=== PATIENT | female | born 1985 | race Caucasian/White ===

== ENCOUNTER → 2016-07-11 | Outpatient (CLI) | payer OTHER ==
--- NOTE | 2016-07-11 16:46 | MAMMOGRAPHY REPORT ---
BILATERAL DIGITAL SCREENING MAMMOGRAM TOMOSYNTHESIS WITH CAD: 07/11/2016 CLINICAL HISTORY: Routine screening. Patient has no complaints. TECHNIQUE: Breast tomosynthesis in addition to standard 2D mammography was performed. Current study was also evaluated with a Computer Aided Detection (CAD) system. COMPARISON: Comparison is made to exams dated: 07/08/2015 mammogram, 02/04/2014 mammogram, 03/01/2011 mammogram, 03/08/2011 mammogram, and 01/31/2013 mammogram - [facility] [address]. BREAST COMPOSITION: The tissue of both breasts is heterogeneously dense, which may obscure small ma sses. FINDINGS: The parenchymal pattern is similar to prior exams. A few punctate microcalcifications ar e stable in the breasts. No suspicious mass, architectural distortion or cluster of microcalcificat ions is seen. IMPRESSION: ACR BI-RADS CATEGORY 1: NEGATIVE There is no mammographic evidence of malignancy. A 1 year screening mammogram is recommended. The p atient will receive written notification of the results. Approximately 10% of breast cancers are not detected with mammography. A negative mammographic repor t should not delay biopsy if a clinically suggestive mass is present. Desirae Devi M.D. ay/:07/11/2016 16:36:22 Director Of Design: Arely POWELL(Sukumar)(Wolfgang), [facility] [address] letter sent: Normal 1/2 BI-RADS Code: ACR BI-RADS Category 1: Negative
== END | disposition home or self-care (01) ==
LOC: C.MAMM 16:11
PROVIDERS: ATTEND Family Medicine
DX: Z12.31 Encounter for screening mammogram for malignant neoplasm of breast (principal)

== ENCOUNTER → 2017-07-17 | Outpatient (CLI) | payer OTHER ==
--- NOTE | 2017-07-18 15:22 | MAMMOGRAPHY REPORT ---
BILATERAL DIGITAL SCREENING MAMMOGRAM TOMOSYNTHESIS WITH CAD: 07/17/2017 CLINICAL HISTORY: Routine screening. Patient has no complaints. TECHNIQUE: Breast tomosynthesis in addition to standard 2D mammography was performed. Current study was also evaluated with a Computer Aided Detection (CAD) system. COMPARISON: Comparison is made to exams dated: 07/11/2016 mammogram, 07/08/2015 mammogram, 02/04/2014 m ammogram, 01/31/2013 mammogram, and 03/01/2011 mammogram - [facility]. BREAST COMPOSITION: The tissue of both breasts is heterogeneously dense, which may obscure small mas ses. FINDINGS: No suspicious masses, calcifications, or areas of architectural distortion are noted in ei ther breast. There has been no significant interval change compared to prior exams. IMPRESSION: ACR BI-RADS CATEGORY 1: NEGATIVE There is no mammographic evidence of malignancy. A 1 year screening mammogram is recommended. The pa tient will receive written notification of the results. Approximately 10% of breast cancers are not detected with mammography. A negative mammographic report should not delay biopsy if a clinically suggestive mass is present. Jody Zheng M.D. /:07/17/2017 16:58:19 Support Representative: Martha POWELL(Sukumar)(M), [facility] letter sent: Normal 1/2 BI-RADS Code: ACR BI-RADS Category 1: Negative
== END | disposition home or self-care (01) ==
LOC: C.MAMM 16:21
PROVIDERS: ATTEND Family Medicine
DX: Z12.31 Encounter for screening mammogram for malignant neoplasm of breast (principal)

== ENCOUNTER 2018-11-18 02:20 | Inpatient (IN) ==
[2018-11-18] MEDS ORDERED: OXYTOCIN 30 UNITS/500 ML BAG IV PRN ×3 (03:15→16:32)
[2018-11-18] MEDS: LACTATED RINGER'S 1,000 ML IV PRN ×3 (03:33→10:40)
[2018-11-18 03:40] LABS: Hematocrit (blood only) 37.7 % (37-47); Hemoglobin 13.1 g/dL (12.0-16.0); Mean Corpuscular Volume 87.5 fL (80-100); Mean Platelet Volume 10.8 fL (7.4-10.4); Platelet Count 209 K/uL (130-400); RDW Coefficient of Variation 13.9 % (11.5-14.5); RDW Standard Deviation 44.6 fL (36.4-46.3); Red Blood Count 4.31 M/uL (4.2-5.4); White Blood Count 16.52 K/uL (4.8-10.8)
[2018-11-18 04:28] LABS: Mean Corpuscular Hgb Conc 34.7 g/dL (32-36)
[2018-11-18] MEDS ORDERED: BUPIVACAINE 0.25% 30 ML VIAL ONE (06:30)
[2018-11-18] MEDS ORDERED: ePHEDrine sulfate 50 MG/ML AMP ONE (06:30)
[2018-11-18] MEDS ORDERED: fentaNYL citrate 100 MCG/2 ML VIAL ONE (06:30)
[2018-11-18] MEDS ORDERED: fentaNYL 2MCG/ML ROPIV 1.25MG/ML 100 ML BAG EPI ONE (06:31)
--- NOTE | 2018-11-18 06:53 | Labor Progress Brief Note ---
Date of Service November 18, 2018 Subjective Patient visited shortly after 6am. Tolerating contractions, somewhat better while in shower but getting more painful again while in bed. Will want epidural soon. FHT 130 mod moni +acc -dec Cowen irreg Cvx 2/90/-2 LOF clear Discussed augmentation given ROM and minimal change from last exam; pt agreeable. Will get epidural first then begin pit drip. Results & Data Vital Signs (Past 12 Hours) Vital Signs Temp Pulse Resp BP Pulse Ox 11/18/18 06:48 68 98 11/18/18 06:43 86 87 L 11/18/18 05:00 37.0 C 18 11/18/18 02:37 36.9 C 18 11/18/18 02:35 74 139/80
[2018-11-18] MEDS ORDERED: PROMETHAZINE HCL 6.25 MG in SODIUM CHLORIDE 0.9% 50 ML IV PRN (07:35)
[2018-11-18] MEDS ORDERED: NALOXONE HCL 0.4 MG/1 ML VIAL/CARP IV PRN (07:35)
[2018-11-18] MEDS ORDERED: NALOXONE HCL 1 MG in SODIUM CHLORIDE 0.9% 1000ML 1,000 ML IV PRN (07:35)
[2018-11-18] MEDS ORDERED: fentaNYL 2MCG/ML ROPIV 1.25MG/ML 100 ML BAG EPI PRN (07:35)
[2018-11-18] MEDS ORDERED: NALBUPHINE HCL INJ 10 MG/ML AMP IV PRN (07:35)
[2018-11-18] MEDS ORDERED: ePHEDrine sulfate 50 MG/ML AMP IV PRN (07:35)
[2018-11-18] MEDS ORDERED: DiphenhydrAMINE HCL 50 MG/ML VIAL IV PRN (07:35)
[2018-11-18] MEDS ORDERED: ONDANSETRON INJ 2 MG/ML 2 ML VIAL IV PRN (07:35)
--- NOTE | 2018-11-18 07:35 | Anesthesiology Consultation ---
Date of Service November 18, 2018 Assessment & Plan (1) Encounter for pre-operative examination: Chart Review Chart Review: Patient NOT seen in Pre Admission Testing and Acceptable Risk for Labor Epidural Consults Requested none ASA ASA2 Proposed Anesthesia Anesthesia Type: Labor Epidural Risk / Benefits Reviewed With: PT / POA / Parent / Guardian, Accepts Plan and Informed Consent Obtained History Height/Weight Height: 5 ft 4 in Weight: 78.471 kg Allergies Allergy/AdvReac Type Severity Reaction Status Date / Time No Known Allergies Allergy Unverified 11/18/18 02:53 Medications Home Medications Medication Instructions Recorded Confirmed Last Taken 1 tab PO DAILY 11/18/18 11/18/18 1 Day Ago ~11/17/18 0800 Active Medications Generic Name Dose Route Start Last Admin Trade Name Freq PRN Reason Stop Dose Admin Lactated Ringer's 1,000 mls @ 125 mls/hr 11/18/18 03:15 11/18/18 06:53 Lr IV 11/20/18 03:14 999 mls/hr .Q8H PRN Administration L&D Protocol Protocol NPO Date Last Intake of Fluids: 11/18/18 Time Last Intake of Fluids: 01:00 Date Last Intake of Solids: 11/18/18 Time Last Intake of Solids: 01:00 Past Medical History Medical History Fibroid Right side Exercise / Class Metabolic Activity II 4-5 Yardwork/Stairs/Walk up hill Past Family History Family History Grandmother (Paternal) Diabetes Brother No problems noted. Mother Cancer Past Anesthesia History No Hx of Anesthesia Complications History of PONV No Hx of PONV Social History Smoking Status: Never smoker Do You Dip or Chew Tobacco: No Hx Alcohol Use: No Hx Substance Use: No Physical Exam Vital Signs Last Vital Signs Temp 37.0 C 11/18/18 05:00 Pulse 100 H 11/18/18 07:32 Resp 18 11/18/18 05:00 BP 127/73 11/18/18 07:32 Pulse Ox 99 11/18/18 07:28 ENMT Mouth: no dentition abnormality Thyromental Distance: > or= 3.5 Finger Breadths Mallampati Class: II Neck normal visual inspection Respiratory normal respiratory effort Auscultation: lungs clear to auscultation bilaterally Cardiovascular Rate/Rhythm: regular rate and regular rhythm Psychiatric Orientation: alert
[2018-11-18] MEDS ORDERED: CALCIUM CARBONATE 500 MG CHEWABLE TAB PO PRN (08:39)
[2018-11-18] MEDS ORDERED: OXYCODONE/ACETAMINOPHEN 5mg/325mg TAB PO PRN (16:32)
[2018-11-18] MEDS ORDERED: HYDROCORTISONE ACETATE 25 MG SUPP PR PRN (16:32)
[2018-11-18] MEDS ORDERED: SUPERCREAM 0.870% 15 GM JAR EXT PRN (16:32)
[2018-11-18] MEDS ORDERED: ACETAMINOPHEN 325 MG TAB PO PRN (16:32)
[2018-11-18] MEDS ORDERED: BISACODYL 10 MG SUPP PR PRN (16:32)
[2018-11-18] MEDS ORDERED: DIPHTHERIA/TETANUS/PERTUSSIS 0.5 ML SYR/VIAL IM ONE (16:32)
--- NOTE | 2018-11-18 17:42 | Anesthesia Procedure Note ---
Date of Service November 18, 2018 Anesthesia Post Epidural Note Vital Signs Vital Signs: Temp Pulse Resp BP Pulse Ox 11/18/18 17:28 112 H 122/64 11/18/18 17:13 115 H 133/74 11/18/18 16:58 93 H 121/65 11/18/18 16:43 91 H 124/68 11/18/18 16:28 93 H 119/67 11/18/18 16:13 88 124/67 11/18/18 16:08 90 125/67 11/18/18 15:39 84 151/90 H 11/18/18 15:38 84 99 11/18/18 15:33 101 H 100 11/18/18 15:28 81 99 11/18/18 15:23 84 98 11/18/18 15:18 121 H 100 11/18/18 15:13 79 99 11/18/18 15:08 82 121/57 L 98 11/18/18 15:03 72 99 11/18/18 14:58 90 100 11/18/18 14:53 79 99 11/18/18 14:48 77 100 11/18/18 14:43 70 100 11/18/18 14:39 71 122/58 L 11/18/18 14:38 79 100 11/18/18 14:33 91 H 100 11/18/18 14:28 74 100 11/18/18 14:23 78 100 11/18/18 14:19 90 87 L 11/18/18 14:18 93 H 90 11/18/18 14:13 76 100 11/18/18 14:08 79 100 11/18/18 14:05 83 124/60 11/18/18 14:03 94 H 94 11/18/18 13:59 95 H 76 L 11/18/18 13:58 87 128/77 99 11/18/18 13:53 91 H 99 11/18/18 13:49 90 125/60 11/18/18 13:48 86 100 11/18/18 13:46 90 129/95 85 L 11/18/18 13:43 86 100 11/18/18 13:38 91 H 119/63 100 11/18/18 13:35 103 H 122/77 11/18/18 13:33 108 H 100 11/18/18 13:29 76 119/65 11/18/18 13:28 88 100 06 13:23 88 129/69 100 11/18/18 13:19 82 131/73 06 13:18 79 99 11/18/18 13:14 86 136/72 11/18/18 13:13 87 100 11/18/18 13:10 93 H 134/82 11/18/18 13:08 96 H 100 11/18/18 13:03 100 H 129/78 100 11/18/18 12:58 87 123/71 100 11/18/18 12:54 101 H 126/74 11/18/18 12:53 104 H 100 11/18/18 12:50 100 H 85 L 11/18/18 12:49 100 H 138/75 11/18/18 12:48 95 H 100 11/18/18 12:45 91 H 129/71 11/18/18 12:43 93 H 99 11/18/18 12:40 85 128/75 11/18/18 12:38 106 H 100 11/18/18 12:34 88 130/78 11/18/18 12:33 90 100 11/18/18 12:28 101 H 130/86 99 11/18/18 12:23 102 H 126/76 100 11/18/18 12:20 81 129/72 11/18/18 12:18 102 H 100 11/18/18 12:14 86 118/72 11/18/18 12:13 98 H 100 11/18/18 12:08 93 H 136/72 100 11/18/18 12:03 92 H 124/72 100 11/18/18 12:00 95 H 129/81 11/18/18 11:58 100 H 100 11/18/18 11:53 82 121/71 100 11/18/18 11:50 88 122/74 11/18/18 11:48 93 H 100 06 11:43 76 124/70 100 11/18/18 11:38 86 122/69 100 11/18/18 11:35 77 120/69 11/18/18 11:33 87 100 11/18/18 11:30 36.6 C 86 20 126/71 11/18/18 11:28 84 100 06 11:24 90 139/75 11/18/18 11:23 80 100 06/09/03 11:19 86 122/83 06/09/03 11:18 84 100 06/09/03 11:13 97 H 121/65 100 06/09/03 11:08 89 128/77 100 06/09/03 11:03 88 125/75 100 06/09/03 10:58 91 H 100 06/09/03 10:53 87 124/74 100 06/09/03 10:49 77 125/72 06/09/03 10:48 97 H 100 06/09/03 10:43 89 119/72 98 06/09/03 10:38 83 116/73 100 06/09/03 10:33 82 117/74 100 06/09/03 10:29 76 121/69 06 10:28 84 99 06/09/03 10:23 100 H 123/73 100 /09/03 10:18 85 114/68 98 06/09/03 10:13 83 121/68 97 06/09/03 10:09 78 117/69 06 10:08 80 98 06/09/03 10:05 72 118/63 06 10:03 86 97 06 09:58 83 112/68 98 06 09:53 76 115/68 98 11/18/18 09:48 78 111/67 98 06/09/03 09:43 81 119/67 99 11/18/18 09:39 78 113/72 06/09/03 09:38 82 99 06/09/03 09:33 78 125/70 99 06/09/03 09:28 78 115/64 98 06/03 09:23 84 112/62 98 06/09/03 09:18 72 114/62 99 06/09/03 09:13 74 115/65 99 06/09/03 09:08 73 113/66 100 06/09/03 09:03 84 115/67 100 06 08:58 71 111/69 98 06 08:53 106 H 108/67 100 /09/03 08:48 77 112/66 98 06/03/ 08:43 84 114/62 98 06/09/03 08:38 76 108/63 98 /09/03 08:34 71 110/62 06/09/03 08:33 76 99 11/18/18 08:28 85 97/53 L 100 11/18/18 08:23 92 H 108/59 L 100 11/18/18 08:18 83 108/60 100 11/18/18 08:13 79 105/58 L 99 11/18/18 08:08 85 104/56 L 100 11/18/18 08:04 70 108/58 L 11/18/18 08:03 75 99 11/18/18 07:58 84 108/62 100 11/18/18 07:53 96 H 94/57 L 100 11/18/18 07:49 79 116/61 11/18/18 07:48 74 99 11/18/18 07:43 92 H 120/65 100 11/18/18 07:38 101 H 115/68 99 11/18/18 07:33 98 H 100 11/18/18 07:32 100 H 127/73 11/18/18 07:30 83 118/71 11/18/18 07:28 88 109/65 99 11/18/18 07:26 81 117/69 11/18/18 07:25 82 116/76 11/18/18 07:23 76 122/67 99 11/18/18 07:20 78 137/72 11/18/18 07:19 74 124/71 11/18/18 07:18 84 100 11/18/18 07:13 89 99 11/18/18 07:08 87 150/97 H 99 11/18/18 07:03 84 100 11/18/18 07:00 36.7 C 20 11/18/18 06:58 79 100 11/18/18 06:53 78 99 11/18/18 06:48 68 98 11/18/18 06:43 86 87 L 11/18/18 05:00 37.0 C 18 11/18/18 02:37 36.9 C 18 11/18/18 02:35 74 139/80 Notes Mental Status: alert / awake / arousable Nausea / Vomiting: adequately controlled Pain: adequately controlled Airway Patency, RR, SpO2: stable & adequate BP & HR: stable & adequate Hydration State: stable & adequate Neuraxial Anesthesia: was administered and sensory block is resolving Anesthetic Complications: no major complications apparent and Pt Satisfied with anesthetic care Epidural: Removed without complications and With tip intact
[2018-11-18] MEDS: DOCUSATE SODIUM 100 MG CAP PO SCH (20:58)
--- NOTE | 2018-11-19 03:29 | Delivery Summary ---
DATE OF OPERATION: 11/18/2018 The patient is a 33-year-old G1, P0 white female at term who presented with spontaneous rupture of membranes at approximately midnight. She received epidural analgesia and Pitocin augmentation was then begun. She progressed to full dilation. She pushed effectively over intact perineum for delivery of a viable female . Rest of delivered easily after the mouth and nasopharynx were suctioned on the perineum. The was then placed on the mother's abdomen for further attention and drying. There was vigorous crying and the infant was moving all 4 limbs. The cord was clamped and cut after approximately 30 seconds. The placenta was then expressed intact with a 3-vessel cord. Bilateral sulcal tears were repaired with 3-0 chromic. A partial third degree laceration was repaired with 2-0 chromic. Rectum was intact post repair with no sutures in the rectal mucosa. The rest of the perineal tear was repaired in the usual fashion. Estimated blood loss was 300 mL. Mother and are doing well after delivery. I attest to the content of the Intraoperative Record and any orders documented therein. Any exceptions are noted below. MTDD
[2018-11-19] MEDS: BENZOCAINE 20% AER SPR 82.5 GM CAN EXT PRN (04:02)
[2018-11-19] MEDS: IBUPROFEN 600 MG TAB PO PRN ×3 (04:02→17:41)
--- NOTE | 2018-11-19 06:29 | Obstetrical Progress Note ---
Date of Service <Adonis Johnson MD - Last Filed: 11/19/18 06:32> November 19, 2018 Assessment & Plan <Adonis Johnson MD - Last Filed: 11/19/18 06:32> (1) Vaginal delivery: Melisa is a 33yo who presented at 39+ now s/p - PPD#1 - Feels well today. Eating well, voiding well, ambulating well. - Pain well controlled with ibuprofen 600mg Q4H PRN. - Routine care - After discharge will have [address] Gonzalez. Subjective <Adonis Johnson MD - Last Filed: 11/19/18 06:32> Ambulation: ambulating normally Voiding: no voiding problems Passing Gas:: Yes Diet Tolerance:: regular diet Lochia:: Moderate Feeding Type:: breast feeding (pumping and supplement with difficulty latching on day 1) Current Pain Level(1-10): 1 Review of Systems Denies fever, chills, sweats Denies shortness of breath, difficulty breathing, chest pain, palpitations, chest pressure. Denies breast pain. Endorses some burning with urination at her suture site. Denies headache. Physical Exam <Adonis Johnson MD - Last Filed: 11/19/18 06:32> Vital Signs (Past 24 Hours) Last Vital Signs Temp 36.7 C 11/19/18 04:00 Pulse 88 11/19/18 04:00 Resp 18 11/19/18 04:00 BP 126/82 11/19/18 04:00 Pulse Ox 99 11/18/18 15:38 General: Alert, oriented. No acute distress. Cardiac: Regular rate and rhythm, no murmurs/rubs/gallops. Respiratory: Clear to auscultation anterior and posteriorly, no wheezes/rales/rhonchi. No increased work of breathing. Symmetrical chest rise. No respiratory distress. Abdomen: Soft, nontender, nondistended. Bowel sounds present. Uterus: Uterine fundus firm, palpable at umbilicus. Lower Extremities: No lower extremity edema or swelling. No deep calf pain. Philippe's negative bilaterally. <Licha Hussein MD, FACOG - Last Filed: 11/19/18 07:43> Co-Signing Physician Notes Resident Physician Supervision Note: I interviewed and examined the patient. Discussed with Dr. Adonis Johnson PGY1 and agree with findings and plan as documented in the note. Any exceptions or clarifications are listed here: [None] Documented By: Licha Hussein MD, FACOG Resident Activity Tracking <Adonis Johnson MD - Last Filed: 11/19/18 06:32> Resident Involvement: Resident Care Provided Care Provided: Adult Hospital Medicine
[2018-11-19 07:01] LABS: Hematocrit (blood only) 30.1 % (37-47); Mean Corpuscular Hgb Conc 33.2 g/dL (32-36); Mean Corpuscular Volume 87.8 fL (80-100); Mean Platelet Volume 11.3 fL (7.4-10.4); Platelet Count 178 K/uL (130-400); RDW Coefficient of Variation 14.3 % (11.5-14.5); RDW Standard Deviation 45.7 fL (36.4-46.3); Red Blood Count 3.43 M/uL (4.2-5.4)
[2018-11-19] MEDS: DOCUSATE SODIUM 100 MG CAP PO SCH ×2 (09:24→20:28)
[2018-11-19] MEDS: PRENATAL VITAMIN 1 TAB PO SCH (09:24)
[2018-11-19] MEDS ORDERED: BISACODYL 5 MG TABEC PO SCH (20:00)
[2018-11-20] MEDS: IBUPROFEN 600 MG TAB PO PRN (04:52)
--- NOTE | 2018-11-20 06:34 | Obstetrical Progress Note ---
Date of Service <Adonis Johnson MD - Last Filed: 11/20/18 06:34> November 20, 2018 Assessment & Plan <Adonis Johnson MD - Last Filed: 11/20/18 06:34> (1) Vaginal delivery: Melisa is a 33yo who presented at 39+ now s/p - PPD#2 - Feels well today. Eating well, voiding well, ambulating well. - Pain well controlled with ibuprofen 600mg Q4H PRN. - Routine care - After discharge will have [address] Gonzalez. Subjective <Adonis Johnson MD - Last Filed: 11/20/18 06:34> Ambulation: ambulating normally Voiding: no voiding problems Passing Gas:: Yes Diet Tolerance:: regular diet Lochia:: Small Feeding Type:: bottle feeding Current Pain Level(1-10): 1 Review of Systems Denies fever, chills, sweats Denies shortness of breath, difficulty breathing, chest pain, palpitations, chest pressure. Denies breast pain. Denies dysuria. Denies headache. Physical Exam <Adonis Johnson MD - Last Filed: 11/20/18 06:34> Vital Signs (Past 24 Hours) Last Vital Signs Temp 36.4 C L 11/19/18 23:10 Pulse 85 11/19/18 23:10 Resp 18 11/19/18 23:10 BP 110/66 11/19/18 23:10 Pulse Ox 98 11/19/18 11:35 General: Alert, oriented. No acute distress. Cardiac: Regular rate and rhythm, no murmurs/rubs/gallops. Respiratory: Clear to auscultation anterior and posteriorly, no wheezes/rales/rhonchi. No increased work of breathing. Symmetrical chest rise. No respiratory distress. Abdomen: Soft, nontender, nondistended. Bowel sounds present. Uterus: Uterine fundus firm, palpable 1cm below umbilicus. Lower Extremities: No lower extremity edema or swelling. No deep calf pain. Philippe's negative bilaterally. <Toy Martínez Jr, MD, FACOG - Last Filed: 11/20/18 07:05> Co-Signing Physician Notes Resident Physician Supervision Note: I was present with Dr. Johnson during the history and exam. I discussed the case with the resident and agree with the findings and plan as documented in the note. Any exceptions or clarifications are listed here: Patient desires d/c, instructions given, f/u in 6 weeks Documented By: Toy Martínez Jr, MD, FACOG Resident Activity Tracking <Adonis Johnson MD - Last Filed: 11/20/18 06:34> Resident Involvement: Resident Care Provided Care Provided: Adult Hospital Medicine
[2018-11-20 06:55] LABS: Hemoglobin 9.1 g/dL (12.0-16.0)
[2018-11-20] MEDS: BENZOCAINE 20% AER SPR 82.5 GM CAN EXT PRN (07:28)
[2018-11-20] MEDS: DOCUSATE SODIUM 100 MG CAP PO SCH (08:16)
[2018-11-20] MEDS: PRENATAL VITAMIN 1 TAB PO SCH (08:16)
== END 2018-11-20 13:05 | disposition home or self-care (01) | DRG 768 ==
LOC: OPB 02:20 → 4S1 02:22 → 4S2 20:33